=== PATIENT | male | born 1940 | race Caucasian/White ===

== ENCOUNTER 2019-08-19 10:45 | Emergency (ER) | payer OTHER ==
[~2019-08-19] VITALS: Ht 185.4 cm; Wt 83.9 kg
[2019-08-19] MEDS ORDERED: FARXIGA5 MG PO (10:57)
[2019-08-19] MEDS ORDERED: GLYBURIDE 5 MG T5 M1 PO (10:57)
[2019-08-19] MEDS ORDERED: PLAVIX 75 MG TA75 MG PO (10:57)
[2019-08-19] MEDS ORDERED: LOPRESSOR50 MG PO (10:57)
[2019-08-19] MEDS ORDERED: NORCO 5-325 TA1 EAC1 PO (12:17)
[2019-08-19] MEDS ORDERED: FLEXERIL PO (12:17)
[2019-08-19 12:29] VITALS: BP 116/76
== END 2019-08-19 12:29 | disposition home or self-care (01) ==
LOC: M.ERS 10:45
DX: S16.1XXA Strain of muscle, fascia and tendon at neck level, initial encounter (principal); S00.83XA Contusion of other part of head, initial encounter; I10 Essential (primary) hypertension; E11.9 Type 2 diabetes mellitus without complications; W18.39XA Other fall on same level, initial encounter; Y93.E1 Activity, personal bathing and showering; Y92.89 Other specified places as the place of occurrence of the external cause; Y99.8 Other external cause status